=== PATIENT | female | born 1990 | race Caucasian/White ===

== ENCOUNTER 2017-01-24 13:38 | Emergency (ER) | payer OTHER ==
[2017-01-24 12:11] LABS: BASOPHILS 0.5 %; BASOPHILS ABSOLUTE 0.07 10/3/uL (0.0-0.16); EOSINOPHILS 3.4 %; EOSINOPHILS ABSOLUTE 0.53 10/3/uL (0.0-0.53); HEMATOCRIT 45.7 % (36.0-48.0); HEMOGLOBIN 16.2 g/dL (12.0-16.0); IMMATURE GRANULOCYTES 0.3 %; IMMATURE GRANULOCYTES ABSOLUTE 0.04 10/3/uL (0.0-0.11); LYMPHOCYTES 13.9 %; LYMPHOCYTES ABSOLUTE 2.15 10/3/uL (0.67-4.30); MANUAL DIFF NO %; MEAN CORPUS HGB CONC 35.4 g/dL (32.0-36.0); MEAN CORPUSCULAR VOLUME 87.5 fL (80-100); MONOCYTES 3.1 %; MONOCYTES ABSOLUTE 0.48 10/3/uL (0.21-1.20); NEUTROPHILS 78.8 %; NEUTROPHILS ABSOLUTE 12.24 10/3/uL (2.02-8.40); PLATELET COUNT 243 10/3/uL (150-400); RBC DISTRIBUTION WIDTH 14.2 % (12.0-16.0); RED CELL COUNT 5.22 10/6/uL (4.0-5.6); WHITE BLOOD CELLS 15.5 10/3/uL (4.5-10.5)
[2017-01-24 12:14] LABS: ASCORBIC ACID (UR NOT ORDER) NEG (NEG); BILIRUBIN, URINE NEGATIVE (NEG); ER URINALYSIS TAT 0 Hrs 07 Mins; KETONE, URINE NEGATIVE (NEG); LEUKOCYTE ESTERASE(NOT OR TRACE (NEG); NITRITE (URINE) NEG (NEG); WBC (NOT ORDERED) (RFLEX) < 1 (0-5)
[2017-01-24 12:41] LABS: BUN (BLOOD UREA NITROGEN) 9 MG/DL (6-23); CALCIUM, SERUM 9.1 MG/DL (8.5-10.4); CHLORIDE, SERUM 112 MMOL/L (96-112); CO2 (CARBON DIOXIDE) 23 MMOL/L (24-34); GFR AFRICAN AMERICAN 116 ML/MIN (>=60); GFR NON AFRICAN AMERICAN 100 ML/MIN (>=60); GLUCOSE, SERUM 110 MG/DL (60-99); SGPT(ALT) 81 U/L (5-65); SODIUM, SERUM 141 MMOL/L (135-148); TOTAL BILIRUBIN 0.3 MG/DL (0-1.2)
[2017-01-24 12:43] LABS: ALBUMIN 3.9 G/DL (3.5-5.0); ALKALINE PHOSPHATASE 172 U/L (45-117); GLOBULIN 3.9 G/DL (2.5-4.1); POTASSIUM, SERUM 4.9 MMOL/L (3.5-5.3); SGOT(AST) 44 U/L (5-40); TOTAL PROTEIN 7.8 G/DL (6.0-8.5)
[~2017-01-24 13:38] MED LIST: BENTYL10 PO; CREON24000 UNT PO; DSS PO; LUNESTA2 M1 PO; LYRICA75 PO; NICODERM C21 MG/241 TOP; OXYCOD PO; OXYCON10 PO; PR25 PO; PROTONIX20 MG PO; REG PO; ROXICODONE15 MG PO; VENTOLIN HFA PO
[2017-03-07] MEDS ORDERED: LYRICA150 MG PO (16:03)
[2017-03-07] MEDS ORDERED: ZOFRAN 2 MG/ML IM (16:05)
[2017-03-07] MEDS ORDERED: CREON DR 3,0001 EACH PO (16:12)
[2017-04-12] MEDS ORDERED: LUNESTA2 M1 PO (09:31)
[2017-04-12] MEDS ORDERED: LYRICA150 MG PO (09:32)
[2017-04-12] MEDS ORDERED: PROAIR HFA INH (09:32)
[2017-04-12] MEDS ORDERED: FLAG500TAB PO (09:33)
== END 2017-01-24 17:08 | disposition admitted as inpatient to this hospital (09) ==
LOC: ER 13:38
PROVIDERS: Emergency Medicine
DX: K86.1 Other chronic pancreatitis (principal); Z88.2 Allergy status to sulfonamides; Z88.5 Allergy status to narcotic agent; Z88.8 Allergy status to other drugs, medicaments and biological substances; Z79.899 Other long term (current) drug therapy
CPT/HCPCS: 80053; 81001; 83690; 84703; 85025; 96374; 99284; J1170; J2550

== ENCOUNTER 2017-01-27 09:21 | Emergency (ER) | payer OTHER ==
[2017-01-27 08:54] LABS: BASOPHILS 0.5 %; BASOPHILS ABSOLUTE 0.06 10/3/uL (0.0-0.16); EOSINOPHILS 5.6 %; HEMATOCRIT 43.1 % (36.0-48.0); HEMOGLOBIN 15.7 g/dL (12.0-16.0); IMMATURE GRANULOCYTES 0.2 %; IMMATURE GRANULOCYTES ABSOLUTE 0.02 10/3/uL (0.0-0.11); LYMPHOCYTES 17.4 %; LYMPHOCYTES ABSOLUTE 2.19 10/3/uL (0.67-4.30); MEAN CORPUS HGB CONC 36.4 g/dL (32.0-36.0); MEAN CORPUSCULAR HEMOGLOB 31.5 pg (26.0-34.0); MEAN CORPUSCULAR VOLUME 86.5 fL (80-100); MEAN PLATELET VOLUME 10.4 fL (9.2-13.0); MONOCYTES ABSOLUTE 0.76 10/3/uL (0.21-1.20); NEUTROPHILS 70.3 %; NEUTROPHILS ABSOLUTE 8.84 10/3/uL (2.02-8.40); PLATELET COUNT 229 10/3/uL (150-400); RBC DISTRIBUTION WIDTH 13.9 % (12.0-16.0); RED CELL COUNT 4.98 10/6/uL (4.0-5.6); WHITE BLOOD CELLS 12.6 10/3/uL (4.5-10.5)
[2017-01-27 08:55] LABS: MANUAL DIFF NO %
[2017-01-27 09:02] LABS: ASCORBIC ACID (UR NOT ORDER) NEG (NEG); BILIRUBIN, URINE NEGATIVE (NEG); ER URINALYSIS TAT 0 Hrs 12 Mins; KETONE, URINE NEGATIVE (NEG); LEUKOCYTE ESTERASE(NOT OR NEG (NEG); NITRITE (URINE) NEG (NEG); WBC (NOT ORDERED) (RFLEX) 1 (0-5)
[2017-01-27 09:16] LABS: ALBUMIN 3.8 G/DL (3.5-5.0); ALKALINE PHOSPHATASE 159 U/L (45-117); BUN (BLOOD UREA NITROGEN) 13 MG/DL (6-23); CALCIUM, SERUM 8.8 MG/DL (8.5-10.4); CHLORIDE, SERUM 107 MMOL/L (96-112); CO2 (CARBON DIOXIDE) 23 MMOL/L (24-34); CREATININE 0.79 MG/DL (0.55-1.02); GFR AFRICAN AMERICAN 118 ML/MIN (>=60); GFR NON AFRICAN AMERICAN 102 ML/MIN (>=60); GLOBULIN 3.8 G/DL (2.5-4.1); GLUCOSE, SERUM 114 MG/DL (60-99); POTASSIUM, SERUM 3.9 MMOL/L (3.5-5.3); SGOT(AST) 27 U/L (5-40); SGPT(ALT) 63 U/L (5-65); SODIUM, SERUM 141 MMOL/L (135-148); TOTAL BILIRUBIN 0.3 MG/DL (0-1.2); TOTAL PROTEIN 7.6 G/DL (6.0-8.5)
[2017-01-27 09:17] LABS: LACTATE 0.8 MMOL/L (0.3-2.4)
[2017-03-07] MEDS ORDERED: LYRICA150 MG PO (16:03)
[2017-03-07] MEDS ORDERED: ZOFRAN 2 MG/ML IM (16:05)
[2017-03-07] MEDS ORDERED: CREON DR 3,0001 EACH PO (16:12)
[2017-04-12] MEDS ORDERED: LUNESTA2 M1 PO (09:31)
[2017-04-12] MEDS ORDERED: PROAIR HFA INH (09:32)
[2017-04-12] MEDS ORDERED: LYRICA150 MG PO (09:32)
[2017-04-12] MEDS ORDERED: FLAG500TAB PO (09:33)
== END 2017-01-27 12:06 | disposition home or self-care (01) ==
LOC: ER 09:21
PROVIDERS: Nurse Practitioner Family
DX: K86.1 Other chronic pancreatitis (principal); J45.909 Unspecified asthma, uncomplicated; F41.9 Anxiety disorder, unspecified; F17.200 Nicotine dependence, unspecified, uncomplicated; Z88.2 Allergy status to sulfonamides; Z88.8 Allergy status to other drugs, medicaments and biological substances; Z79.899 Other long term (current) drug therapy
CPT/HCPCS: 74176; 80053; 81001; 83605; 83690; 84703; 85025; 96374; 96375; 96376; 99284; J1170; J2550

== ENCOUNTER 2017-03-10 13:42 | Day surgery (SDC) | payer OTHER ==
--- NOTE | ~2017-03-10 | EGD ---
EGD REPORT [facility] [address] [place]. [address] NAME: LEE ANN PACHECO : [birth year] STATUS : REG [facility]#: [id number] AGE: 26 ADM/REG DATE : 03/10/17 MR#: [id number] REPORT SERV DATE: 03/10/17 DICTATED BY: CHACORTA PANDEY DATE: 03/10/17 REPORT STATUS : Draft [facility]ANSCRIBED BY: [facility] DATE: 03/10/17 [facility] Center Patient Name: Lee Ann Pacheco Date of : 1990 Attending MD: CHACORTA PANDEY, Procedure Date No Time: 03/10/2017 Procedure: Upper EUS Indications: Celiac plexus block for pain secondary to chronic pancreatitis Referring MD: MARTIR MAYER SR Medicines: Monitored Anesthesia Care. Levaquin 750 mg IV. Complications: No immediate complications. Estimated blood loss: None. Procedure: Pre-Anesthesia Assessment: - ASA Grade Assessment: III - A patient with severe systemic disease. After obtaining informed consent, the endoscope was passed under direct vision. Throughout the procedure, the patient's blood pressure, pulse, and oxygen saturations were monitored continuously. The Endoscope was introduced through the mouth, and advanced to the second part of duodenum. Findings: Endosonographic Finding : Endosonographic imaging of the pancreas showed sonographic changes indicative of moderate chronic pancreatitis in the entire pancreas. The parenchyma had hyperechoic strands, hyperechoic foci, hypoechoic foci and lobularity. The pancreatic duct had hyperechoic banuelos. The region of the celiac plexus and celiac ganglia was visualized and showed no sign of significant endosonographic abnormality. Celiac plexus block was performed. The region of the celiac plexus and celiac ganglia was identified endosonographically with Color Doppler imaging, using the take-off of the celiac trunk from the anterior aspect of the aorta as the main anatomical landmark. Color Doppler guidance was also used to confirm a lack of significant vascular structures within the injection needle path. Using a transgastric approach, a 22 gauge needle was advanced to the area of the celiac plexus. Needle aspiration was performed prior to injection to exclude entry into a blood vessel. A total of 10 mL of 0.75% bupivacaine and 80 mg of triamcinolone (40 mg/mL) were injected for the celiac plexus block. The needle was then withdrawn. Impression: - Endosonographic imaging of the pancreas showed sonographic changes consistent with moderate chronic pancreatitis. EGD REPORT [address] [address] NAME: LEE ANN PACHECO : [birth year] STATUS : REG [facility] PAT#: [id number] AGE: 26 ADM/REG DATE : 03/10/17 MR#: [id number] REPORT SERV DATE: 03/10/17 DICTATED BY: CHACORTA PANDEY DATE: 03/10/17 REPORT STATUS : Draft TRANSCRIBED BY: [employer] DATE: 03/10/17 - Celiac plexus block performed. Recommendation: - Return to previous diet. - Continue present medications. - Cipro (ciprofloxacin) 500 mg PO BID. Procedure Code(s): --- Professional --- 67655, Esophagogastroduodenoscopy, flexible, transoral; with transendoscopic ultrasound-guided transmural injection of diagnostic or therapeutic substance(s) (eg, anesthetic, neurolytic agent) or fiducial marker(s) (includes endoscopic ultrasound examination of the esophagus, stomach, and either the duodenum or a surgically altered stomach where the jejunum is examined distal to the anastomosis) Diagnosis Code(s): --- Professional --- R93.3, Abnormal findings on diagnostic imaging of other parts of digestive tract K86.1, Other chronic pancreatitis CPT copyright 2013 [employer]. All rights reserved. The codes documented in this report are preliminary and upon food adviser review may be revised to meet current compliance requirements. CHACORTA PANDEY, 03/10/2017 3:42 PM Number of Addenda: 0 Note Initiated On: 03/10/2017 3:06 PM [address] [place] [address]
[~2017-03-10 13:42] MED LIST changes: +CREON DR 3,0001 EACH PO; +LYRICA150 MG PO; +ZOFRAN 2 MG/ML IM
[2017-04-12] MEDS ORDERED: LUNESTA2 M1 PO (09:31)
[2017-04-12] MEDS ORDERED: LYRICA150 MG PO (09:32)
[2017-04-12] MEDS ORDERED: PROAIR HFA INH (09:32)
[2017-04-12] MEDS ORDERED: FLAG500TAB PO (09:33)
== END 2017-03-10 23:59 | disposition home or self-care (01) ==
LOC: DMU 13:42
PROVIDERS: Internal Medicine Gastroenterology
PROC: 3E0T3GC Introduction of Other Therapeutic Substance into Peripheral Nerves and Plexi, Percutaneous Approach (ICD-10-PCS; principal; 2017-03-10 16:30)
DX: K86.1 Other chronic pancreatitis (principal); R93.3 Abnormal findings on diagnostic imaging of other parts of digestive tract; F17.210 Nicotine dependence, cigarettes, uncomplicated; J45.909 Unspecified asthma, uncomplicated; K21.9 Gastro-esophageal reflux disease without esophagitis; G43.909 Migraine, unspecified, not intractable, without status migrainosus; G89.29 Other chronic pain; E28.2 Polycystic ovarian syndrome; Z88.2 Allergy status to sulfonamides; Z88.5 Allergy status to narcotic agent; Z88.8 Allergy status to other drugs, medicaments and biological substances; Z98.890 Other specified postprocedural states; Z90.49 Acquired absence of other specified parts of digestive tract; Z87.01 Personal history of pneumonia (recurrent); Z90.89 Acquired absence of other organs; Z87.09 Personal history of other diseases of the respiratory system; Z79.899 Other long term (current) drug therapy; Z79.891 Long term (current) use of opiate analgesic
CPT/HCPCS: 84703; C1725; J1170; J1956; J2550; J3301

== ENCOUNTER 2017-04-04 17:48 | Emergency (ER) | payer OTHER ==
[2017-04-04 19:09] LABS: ASCORBIC ACID (UR NOT ORDER) NEG (NEG); BILIRUBIN, URINE NEGATIVE (NEG); ER URINALYSIS TAT 0 Hrs 21 Mins; KETONE, URINE NEGATIVE (NEG); LEUKOCYTE ESTERASE(NOT OR NEG (NEG); NITRITE (URINE) NEG (NEG); WBC (NOT ORDERED) (RFLEX) 1 (0-5)
[2017-04-04 19:10] LABS: ALBUMIN 3.8 G/DL (3.5-5.0); ALKALINE PHOSPHATASE 154 U/L (45-117); BUN (BLOOD UREA NITROGEN) 11 MG/DL (6-23); CALCIUM, SERUM 9.2 MG/DL (8.5-10.4); CHLORIDE, SERUM 107 MMOL/L (96-112); CO2 (CARBON DIOXIDE) 25 MMOL/L (24-34); GFR AFRICAN AMERICAN 101 ML/MIN (>=60); GFR NON AFRICAN AMERICAN 87 ML/MIN (>=60); GLOBULIN 3.8 G/DL (2.5-4.1); GLUCOSE, SERUM 92 MG/DL (60-99); SGOT(AST) 23 U/L (5-40); SGPT(ALT) 59 U/L (5-65); SODIUM, SERUM 140 MMOL/L (135-148); TOTAL BILIRUBIN 0.3 MG/DL (0-1.2); TOTAL PROTEIN 7.6 G/DL (6.0-8.5)
[2017-04-04 20:03] LABS: BASOPHILS 0.4 %; BASOPHILS ABSOLUTE 0.04 10/3/uL (0.0-0.16); EOSINOPHILS ABSOLUTE 0.23 10/3/uL (0.0-0.53); HEMATOCRIT 46.2 % (36.0-48.0); IMMATURE GRANULOCYTES 0.2 %; IMMATURE GRANULOCYTES ABSOLUTE 0.02 10/3/uL (0.0-0.11); LYMPHOCYTES 24.3 %; LYMPHOCYTES ABSOLUTE 2.74 10/3/uL (0.67-4.30); MEAN CORPUS HGB CONC 34.6 g/dL (32.0-36.0); MEAN CORPUSCULAR HEMOGLOB 31.5 pg (26.0-34.0); MEAN PLATELET VOLUME 10.3 fL (9.2-13.0); MONOCYTES 4.3 %; MONOCYTES ABSOLUTE 0.48 10/3/uL (0.21-1.20); NEUTROPHILS 68.8 %; NEUTROPHILS ABSOLUTE 7.75 10/3/uL (2.02-8.40); PLATELET COUNT 261 10/3/uL (150-400); RBC DISTRIBUTION WIDTH 13.6 % (12.0-16.0); RED CELL COUNT 5.08 10/6/uL (4.0-5.6); WHITE BLOOD CELLS 11.3 10/3/uL (4.5-10.5)
[2017-04-04 20:04] LABS: MANUAL DIFF NO %; MEAN CORPUSCULAR VOLUME 90.9 fL (80-100)
[2017-04-12] MEDS ORDERED: LUNESTA2 M1 PO (09:31)
[2017-04-12] MEDS ORDERED: PROAIR HFA INH (09:32)
[2017-04-12] MEDS ORDERED: LYRICA150 MG PO (09:32)
[2017-04-12] MEDS ORDERED: FLAG500TAB PO (09:33)
== END 2017-04-04 23:29 | disposition home or self-care (01) ==
LOC: ER 17:48
PROVIDERS: Hospitalist
DX: K92.0 Hematemesis (principal); R10.13 Epigastric pain; M54.9 Dorsalgia, unspecified; J45.909 Unspecified asthma, uncomplicated; F17.200 Nicotine dependence, unspecified, uncomplicated; Z88.2 Allergy status to sulfonamides; Z88.5 Allergy status to narcotic agent; Z88.8 Allergy status to other drugs, medicaments and biological substances; Z79.899 Other long term (current) drug therapy
CPT/HCPCS: 74177; 80053; 81001; 83690; 84703; 85025; 96374; 96375; 99285; J1170; J2550; Q9967

== ENCOUNTER 2017-04-12 09:33 | Inpatient (IN) | payer OTHER ==
--- NOTE | ~2017-04-12 | DS ---
Discharge Summary [place] [facility]. [address] NAME: JOVANY PACHECO : [birth year] STATUS : DIS IN PAT#: [id number] AGE: 26 ADM/REG DATE : 04/12/17 MR#: [id number] REPORT SERV DATE: 04/18/17 DICTATED BY: DATE: REPORT STATUS : Draft TRANSCRIBED BY: MODL DATE: 04/17/17 ADMISSION DATE: 04/12/2017 DISCHARGE DATE: 04/17/2017 DISCHARGE DIAGNOSES: 1. Pancreatitis, acute on chronic. 2. Obesity with a body mass index of 40.2. 3. Polycystic ovarian disease. 4. History of asthma. 5. Tobacco abuse. CONSULTING PHYSICIANS: Include Dr. Tomlin with GI Medicine and Ms. Chad Fields NP. DISCHARGE MEDICATIONS: Include Protonix 20 mg p.o. at bedtime, Lyrica 150 mg p.o. b.i.d., OxyContin 10 mg p.o. b.i.d., Lunesta 3 mg p.o. at bedtime, ProAir two puffs inhalation daily p.r.n. for shortness of breath, albuterol nebulizer one neb daily p.r.n. for shortness of breath, Bentyl 10 mg p.o. four times daily, Phenergan 25 mg p.o. q.6 hours p.r.n. for nausea, Creon 48,000 units p.o. with meals, Zantac 150 mg p.o. daily p.r.n. for GERD, Dilaudid 2 mg p.o. q.6 hours p.r.n. for pain per the GI Medicine. For full H and P, please refer to Dr. Franca Devlin' dictation on 04/12/2017. Please also see Chet Lam dictation on 04/12/2017. HOSPITAL COURSE/PROBLEM LIST: Acute on chronic pancreatitis. 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 I gave Dilaudid p.r.n. Her pain has not improved much since admission despite the fact that her lipase is trended down to 77 and the patient was well hydrated with IV fluids, discontinuing them yesterday after the patient had a BUN of 3. She has frequently gone outside to smoke despite education that smoking can actually increase her risk of pancreatitis. Her abdomen is soft and no guarding noted. The patient reports vomiting; however, the nurses have repeatedly asked her to save the vomiting, so it can be examined. They have never actually seen her vomit nor has she saved the remains. Her pain has stayed out of proportion to her clinical picture, unclear as to whether this is drug-seeking behavior versus true pathology. She will have a close followup with GI Medicine. She will see Dr. Lay in one week post discharge. She also has an appointment with her primary care provider next Monday. If she states, there is her pain management, I will keep her on her home pain management regimen of OxyContin and Roxicodone and GI medicine gave her a short course of p.o. Dilaudid until she makes it to her followup appointment and she has not had a fever or increased white blood cell count. Initially, her alk phos was elevated; however, now it is normal at 114, ALT is 35, AST is 21 as mentioned before. Her lipase yesterday was 77 and today is 85. The patient was instructed multiple times on tobacco cessation. She will also be discharged on Creon 48,000 units with meals. Her vital signs are stable. Temp at 98.3, heart rate of 80, respirations of 18, O2 sat 97% on room air, and blood pressure of 130/79. Due to the patient's education, medication reconciliation, discharge planning and Discharge Summary [address] [address] NAME: JOVANY PACHECO : [birth year] STATUS : DIS IN PAT#: [id number] AGE: 26 ADM/REG DATE : 04/12/17 MR#: [id number] REPORT SERV DATE: 04/18/17 DICTATED BY: DATE: REPORT STATUS : Draft TRANSCRIBED BY: SETH DATE: 04/17/17 coordination, this discharge took greater than 30 minutes. DICTATED BY: JACQUELYN Addison/SETH Shan Elkins NP / [id number] CC: MD Tristan Carmen MD
--- NOTE | ~2017-04-12 | CN ---
Consultation Report [facility] [address] [place]. [address] NAME: JOVANY PACHECO : [birth year] STATUS : ADM [facility] PAT#: [id number] AGE: 26 ADM/REG DATE : 04/12/17 MR#: [id number] REPORT SERV DATE: 04/12/17 DICTATED BY: LOBO BUENROSTRO DATE: 04/12/17 REPORT STATUS : Draft TRANSCRIBED BY: MODL DATE: 04/12/17 GI CONSULTATION DATE OF CONSULTATION: 04/12/2017 REASON FOR CONSULTATION: Evaluation and management for acute on chronic pancreatitis exacerbation. HISTORY OF PRESENT ILLNESS: Mrs. Pacheco is a 26-year-old female patient who is known to Dr. Tristan Lay in the outpatient setting, who presents with a chief complaint of epigastric abdominal pain. She has a significant past medical history positive for chronic pancreatitis, first diagnosed in 2013. Per patient's report, she has had multiple workups at the [facility], [facility], [facility], as well as [facility] being seen by Dr. Lay. She had a recent endoscopic ultrasound with celiac plexus block, 03/10/2017 under the direction of Dr. Lay. On that exam, it showed endoscopic imaging of the pancreas for sonographic changes consistent with moderate chronic pancreatitis. She did undergo a celiac plexus block at that time. The patient states that the celiac plexus block did not really improve or change her pain. She states for the last one to two weeks. She has had increasing epigastric abdominal pain. She presented to [facility] on 04/04/2017. She underwent a contrasted CT scan, which showed no peripancreatic acute inflammatory changes with a normal lipase and was discharged. She was seen by her primary care physician on Monday of this week. Labs were obtained. She was called yesterday and told she had elevated lipase, thus she presented to [facility]. As per her report, she was taking "too many of her pain medications at home." She has had extreme nausea with vomiting. She has been unable to tolerate any liquids or any solid food in the last three to four days. The patient denies any family history of pancreatic abnormalities, although she reports a grandfather with a history of pancreatic cancer. We did see the patient in 10/2016. She was hospitalized for an extended period of time, required a Dobbhoff tube for enteral feeding for a short course. Subsequently, she was discharged, did relatively well up until January of this year, and began to have recurrent pancreatic symptoms. During her laboratory testing she did have an SANA, which is elevated at 1:320 pattern, homogeneous, and is supposed to see a rock singer in May of this year. I have discussed with the patient. We will treat her pain and nausea as well as IV fluid hydration. PAST MEDICAL HISTORY: Positive for acute on chronic pancreatitis, polycystic ovarian syndrome, obesity, asthma. FAMILY HISTORY: Pancreatic cancer in grandfather. SOCIAL HISTORY: Positive tobacco. No alcohol. No illicits. She lives independently with her and does work outside of the home. ALLERGIES: LISTED TO SULFA, MORPHINE, AND ZOFRAN. Consultation Report [address] [place]. [address] NAME: JOVANY PACHECO : [birth year] STATUS : ADM [facility] PAT#: [id number] AGE: 26 ADM/REG DATE : 04/12/17 MR#: [id number] REPORT SERV DATE: 04/12/17 DICTATED BY: LOBO BUENROSRTO DATE: 04/12/17 REPORT STATUS : Draft TRANSCRIBED BY: SETH DATE: 04/12/17 HOME MEDICATIONS: Consist of ProAir HFA, albuterol, Bentyl, Lunesta, Flagyl, Roxicodone, OxyContin, Protonix, Lyrica, Phenergan, Zantac, Creon. REVIEW OF SYSTEMS: A 10-point review of systems has been obtained with pertinent positives being addressed in the history of present illness. PHYSICAL EXAMINATION: VITAL SIGNS: Temperature 98.4, pulse 83, respirations 16, and blood pressure 125/59. NEURO: Reveals an alert, female, sitting up on the bedside, rocking back and forth. GENERAL: She is cooperative. She is in distress secondary to "extreme abdominal pain." She is awake, alert, oriented x3. HEAD, EARS, EYES, NOSE, AND THROAT: Anicteric. Pupils equal, round, reactive to light accommodation. Normocephalic and atraumatic. NECK: No JVD. No palpable nodes. Supple. LUNGS: Clear anteriorly. Diminished in the bases. She has shallow inspiratory effort. CARDIOVASCULAR: Regular rate and rhythm. ABDOMEN: Soft and obese. She has tenderness markedly to palpation to the epigastric region with voluntary guarding. Active bowel sounds. No organomegaly appreciated. EXTREMITIES: No edema. Normal distal pulses. SKIN: Warm, dry, and intact. PERTINENT LABORATORY DATA: Sodium 140, potassium is 3.9, BUN is 11, creatinine 0.81. White count 13.6, hemoglobin 15.5, hematocrit 45.2. Lipase of 407, amylase is 71, total bilirubin 0.7, alkaline phosphatase 186, ALT 94, AST 37. ASSESSMENT: 1. Epigastric abdominal pain. 2. History of recurrent pancreatitis, acute on chronic. PLAN: 1. N.p.o. except for ice chips. 2. IV fluid resuscitation. 3. 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 4. PPI. 5. Antiemetics. We will follow. MAYUR/SETH ANN Vargas Consultation Report [address] [address] NAME: JOVANY PACHECO : [birth year] STATUS : ADM [facility] PAT#: [id number] AGE: 26 ADM/REG DATE : 04/12/17 MR#: [id number] REPORT SERV DATE: 04/12/17 DICTATED BY: LOBO BUENROSTRO N DATE: 04/12/17 REPORT STATUS : Draft TRANSCRIBED BY: SETH DATE: 04/12/17 / [id number] CC: Franca Devlin M.D.
--- NOTE | ~2017-04-12 | HP ---
History And Physical [address] [address] NAME: JOVANY PACHECO : [birth year] STATUS : ADM [facility] PAT#: [id number] AGE: 26 ADM/REG DATE : 04/12/17 MR#: [id number] REPORT SERV DATE: 04/12/17 DICTATED BY: BLAIR DEVLIN DATE: 04/12/17 REPORT STATUS : Draft TRANSCRIBED BY: MODL DATE: 04/12/17 DATE OF ADMISSION: 04/12/2017 CHIEF COMPLAINT: Abdominal pain. HISTORY OF PRESENT ILLNESS: The patient is a 26-year-old white female who is well known to the Hospitalist Service. She suffers from chronic pancreatitis which is idiopathic. She has seen Dr. Lay. She was last here in 10/2016. At that time, she had a fairly extensive workup including an ERCP, MRI, several labs, and ended up with a Dobhoff for short period of time and ultimately went home. She returns today complaining of generalized abdominal pain, mostly in the upper abdomen and fever to 101. She had several episodes of emesis and nausea. No diarrhea. She actually had a celiac block three weeks ago for the pain with Dr. Lay, but she states she had no relief. PAST MEDICAL HISTORY: 1. Chronic pancreatitis, idiopathic. 2. Obesity. 3. PCOD. 4. Asthma. FAMILY HISTORY: Positive for diabetes. Her grandfather had pancreatic cancer, and her mother had COPD. PAST SURGICAL HISTORY: She had: 1. Cholecystectomy. 2. ERCP. 3. EGD. 4. Colonoscopy. ALLERGIES: SULFA, MORPHINE, AND ZOFRAN. HOME MEDICATIONS: Reviewed and attached. REVIEW OF SYSTEMS: Full 10-point review of systems obtained. Pertinent positives already mentioned in the HPI. PHYSICAL EXAMINATION: VITAL SIGNS: BP 132/79, sats 95%, temperature 97.8, pulse 84, and respiratory rate 16. GENERAL: Well-developed white female. HEENT: Normocephalic, atraumatic. Throat is clear. NECK: Supple. HEART: Regular rate and rhythm. LUNGS: Grossly clear with good symmetrical air entry. ABDOMEN: Soft, but tender in all four quadrants but mostly in the upper quadrants. EXTREMITIES: Warm and dry. SKIN: Intact without rash or lesion. NEURO: She is alert. Cranial nerves II through XII intact. Symmetrical strength and tone History And Physical [place] [id number] [facility] [place]. [address] NAME: JOVANY PACHECO : [birth year] STATUS : ADM [facility] PAT#: [id number] AGE: 26 ADM/REG DATE : 04/12/17 MR#: [id number] REPORT SERV DATE: 04/12/17 DICTATED BY: BLAIR DEVLIN DATE: 04/12/17 REPORT STATUS : Draft TRANSCRIBED BY: MODMichael DATE: 04/12/17 in all four extremities. PSYCH: Mood and affect are appropriate. LABS AND X-RAY: H and H 15 and 45, white count 13.6, platelets are 259. HCG is negative. Basic metabolic panel is normal. Glucose is 130, alkaline phosphatase is 186, ALT is 94, total bilirubin is 0.7. Lipase is 407. Urinalysis has 8 whites on the first one. She has only 1 white on the second one. Procalcitonin is less than 0.05. She had a CT abdomen and pelvis on 04/04/2017 which was negative. ASSESSMENT/PLAN: 1. Chronic pancreatitis with recurrent abdominal pain, mildly elevated lipase. I am waiting for serum amylase. She is tender upon palpation. I suspect this is another episode. We will have Dr. Lay see her. I do not have really any additional recommendations except for conservative management. We will make her n.p.o., provide IV analgesics, and antiemetics. Provide IV fluid resuscitation. Serial labs, serial exam, not sure there is much else to offer here. 2. Obesity. 3. Polycystic ovarian disease. 4. History of asthma. 5. Mild leukocytosis, likely secondary to ongoing pancreatitis, procalcitonin is normal. Urinalysis on repeat looks good. No cough. We will follow. 6. Disposition pending above. 7. Deep venous thrombosis prophylaxis. Subcutaneous Lovenox. CARLOS/SETH Blair Devlin M.D. / [id number] CC: Rafaela Navarro MD
[2017-04-12 08:39] LABS: BASOPHILS 0.3 %; BASOPHILS ABSOLUTE 0.04 10/3/uL (0.0-0.16); EOSINOPHILS 2.2 %; ER CBC TAT 0 Hrs 05 Mins; HEMATOCRIT 45.2 % (36.0-48.0); HEMOGLOBIN 15.5 g/dL (12.0-16.0); IMMATURE GRANULOCYTES 0.2 %; IMMATURE GRANULOCYTES ABSOLUTE 0.03 10/3/uL (0.0-0.11); LYMPHOCYTES ABSOLUTE 2.31 10/3/uL (0.67-4.30); MANUAL DIFF NO %; MEAN CORPUS HGB CONC 34.3 g/dL (32.0-36.0); MEAN CORPUSCULAR HEMOGLOB 31.3 pg (26.0-34.0); MEAN CORPUSCULAR VOLUME 91.1 fL (80-100); MEAN PLATELET VOLUME 9.9 fL (9.2-13.0); MONOCYTES 6.5 %; MONOCYTES ABSOLUTE 0.88 10/3/uL (0.21-1.20); NEUTROPHILS 73.8 %; PLATELET COUNT 259 10/3/uL (150-400); RBC DISTRIBUTION WIDTH 13.7 % (12.0-16.0); RED CELL COUNT 4.96 10/6/uL (4.0-5.6); WHITE BLOOD CELLS 13.6 10/3/uL (4.5-10.5)
[2017-04-12 08:54] LABS: ASCORBIC ACID (UR NOT ORDER) NEG (NEG); BILIRUBIN, URINE NEGATIVE (NEG); ER URINALYSIS TAT 0 Hrs 00 Mins; KETONE, URINE TRACE MG/DL (NEG); LEUKOCYTE ESTERASE(NOT OR MOD (NEG); NITRITE (URINE) NEG (NEG); WBC (NOT ORDERED) (RFLEX) 8 (0-5)
[2017-04-12 08:56] LABS: A/G RATIO 0.9 (0.7-1.9); ALBUMIN 3.5 G/DL (3.5-5.0); ALKALINE PHOSPHATASE 186 U/L (45-117); BUN (BLOOD UREA NITROGEN) 11 MG/DL (6-23); CALCIUM, SERUM 9.2 MG/DL (8.5-10.4); CHLORIDE, SERUM 107 MMOL/L (96-112); CO2 (CARBON DIOXIDE) 27 MMOL/L (24-34); CREATININE 0.81 MG/DL (0.55-1.02); GFR AFRICAN AMERICAN 115 ML/MIN (>=60); GFR NON AFRICAN AMERICAN 99 ML/MIN (>=60); GLOBULIN 3.8 G/DL (2.5-4.1); GLUCOSE, SERUM 130 MG/DL (60-99); POTASSIUM, SERUM 3.9 MMOL/L (3.5-5.3); SGOT(AST) 37 U/L (5-40); SGPT(ALT) 94 U/L (5-65); SODIUM, SERUM 140 MMOL/L (135-148); TOTAL BILIRUBIN 0.7 MG/DL (0-1.2); TOTAL PROTEIN 7.3 G/DL (6.0-8.5)
[~2017-04-12 09:33] MED LIST changes: +FLAG500TAB PO; +PROAIR HFA INH
[2017-04-12] MEDS ORDERED: ROXICODONE15 MG PO (09:34)
[2017-04-12] MEDS ORDERED: ALBUTEROL0.083 % INH (09:34)
[2017-04-12] MEDS ORDERED: BENTYL10 PO (09:35)
[2017-04-12] MEDS ORDERED: PROTONIX20 MG PO (09:35)
[2017-04-12] MEDS ORDERED: OXYCON10 PO (09:36)
[2017-04-12] MEDS ORDERED: PHENERGAN (G25 MG/ML IM (09:37)
[2017-04-12] MEDS ORDERED: CREON 24,000 UNIT PO (09:38)
[2017-04-12] MEDS ORDERED: PR25 PO (09:38)
[2017-04-12] MEDS ORDERED: ZANTAC 150 PO (09:41)
[2017-04-12 14:32] LABS: ASCORBIC ACID (UR NOT ORDER) NEG (NEG); BILIRUBIN, URINE NEGATIVE (NEG); KETONE, URINE NEGATIVE (NEG); LEUKOCYTE ESTERASE(NOT OR SMALL (NEG); WBC (NOT ORDERED) (RFLEX) 1 (0-5)
[2017-04-13 04:55] LABS: BASOPHILS 0.3 %; BASOPHILS ABSOLUTE 0.03 10/3/uL (0.0-0.16); EOSINOPHILS 2.4 %; EOSINOPHILS ABSOLUTE 0.24 10/3/uL (0.0-0.53); HEMATOCRIT 42.2 % (36.0-48.0); IMMATURE GRANULOCYTES 0.3 %; IMMATURE GRANULOCYTES ABSOLUTE 0.03 10/3/uL (0.0-0.11); LYMPHOCYTES 21.7 %; LYMPHOCYTES ABSOLUTE 2.19 10/3/uL (0.67-4.30); MANUAL DIFF NO %; MEAN CORPUS HGB CONC 33.2 g/dL (32.0-36.0); MEAN CORPUSCULAR HEMOGLOB 30.6 pg (26.0-34.0); MEAN CORPUSCULAR VOLUME 92.3 fL (80-100); MEAN PLATELET VOLUME 10.2 fL (9.2-13.0); MONOCYTES 6.1 %; MONOCYTES ABSOLUTE 0.61 10/3/uL (0.21-1.20); NEUTROPHILS 69.2 %; NEUTROPHILS ABSOLUTE 6.98 10/3/uL (2.02-8.40); PLATELET COUNT 225 10/3/uL (150-400); RBC DISTRIBUTION WIDTH 13.8 % (12.0-16.0); RED CELL COUNT 4.57 10/6/uL (4.0-5.6); WHITE BLOOD CELLS 10.1 10/3/uL (4.5-10.5)
[2017-04-13 05:09] LABS: A/G RATIO 0.9 (0.7-1.9); ALBUMIN 3.1 G/DL (3.5-5.0); CALCIUM, SERUM 8.3 MG/DL (8.5-10.4); CHLORIDE, SERUM 110 MMOL/L (96-112); CO2 (CARBON DIOXIDE) 27 MMOL/L (24-34); CREATININE 0.71 MG/DL (0.55-1.02); GFR AFRICAN AMERICAN 134 ML/MIN (>=60); GFR NON AFRICAN AMERICAN 116 ML/MIN (>=60); GLOBULIN 3.5 G/DL (2.5-4.1); SGOT(AST) 27 U/L (5-40); SGPT(ALT) 72 U/L (5-65); SODIUM, SERUM 142 MMOL/L (135-148); TOTAL BILIRUBIN 0.3 MG/DL (0-1.2); TOTAL PROTEIN 6.6 G/DL (6.0-8.5)
[2017-04-13 05:10] LABS: ALKALINE PHOSPHATASE 138 U/L (45-117); BUN (BLOOD UREA NITROGEN) 6 MG/DL (6-23); GLUCOSE, SERUM 84 MG/DL (60-99); TRIGLYCERIDE 81 MG/DL (< 150)
[2017-04-14 07:15] LABS: BASOPHILS 0.1 %; BASOPHILS ABSOLUTE 0.01 10/3/uL (0.0-0.16); EOSINOPHILS 1.8 %; EOSINOPHILS ABSOLUTE 0.17 10/3/uL (0.0-0.53); HEMATOCRIT 40.4 % (36.0-48.0); HEMOGLOBIN 13.1 g/dL (12.0-16.0); IMMATURE GRANULOCYTES 0.2 %; IMMATURE GRANULOCYTES ABSOLUTE 0.02 10/3/uL (0.0-0.11); LYMPHOCYTES 15.9 %; LYMPHOCYTES ABSOLUTE 1.54 10/3/uL (0.67-4.30); MEAN CORPUS HGB CONC 32.4 g/dL (32.0-36.0); MEAN CORPUSCULAR VOLUME 92.4 fL (80-100); MEAN PLATELET VOLUME 9.9 fL (9.2-13.0); MONOCYTES 8.5 %; MONOCYTES ABSOLUTE 0.82 10/3/uL (0.21-1.20); NEUTROPHILS 73.5 %; PLATELET COUNT 185 10/3/uL (150-400); RBC DISTRIBUTION WIDTH 13.9 % (12.0-16.0); RED CELL COUNT 4.37 10/6/uL (4.0-5.6); WHITE BLOOD CELLS 9.7 10/3/uL (4.5-10.5)
[2017-04-14 07:16] LABS: MANUAL DIFF NO %
[2017-04-14 07:29] LABS: ALKALINE PHOSPHATASE 132 U/L (45-117); BUN (BLOOD UREA NITROGEN) 4 MG/DL (6-23); CHLORIDE, SERUM 107 MMOL/L (96-112); CO2 (CARBON DIOXIDE) 30 MMOL/L (24-34); CREATININE 0.78 MG/DL (0.55-1.02); DIRECT BILIRUBIN 0.1 MG/DL (0.0-0.4); GFR AFRICAN AMERICAN 120 ML/MIN (>=60); GFR NON AFRICAN AMERICAN 103 ML/MIN (>=60); GLOBULIN 3.1 G/DL (2.5-4.1); INDIRECT BILIRUBIN(NOT ORDER) 0.2 MG/DL (0.1-0.9); SGOT(AST) 21 U/L (5-40); SGPT(ALT) 51 U/L (5-65); SODIUM, SERUM 139 MMOL/L (135-148); TOTAL BILIRUBIN 0.3 MG/DL (0-1.2); TOTAL PROTEIN 6.1 G/DL (6.0-8.5)
[2017-04-14 07:30] LABS: GLUCOSE, SERUM 119 MG/DL (60-99)
[2017-04-15 05:39] LABS: BASOPHILS 0.3 %; BASOPHILS ABSOLUTE 0.03 10/3/uL (0.0-0.16); EOSINOPHILS 1.1 %; EOSINOPHILS ABSOLUTE 0.11 10/3/uL (0.0-0.53); HEMATOCRIT 39.3 % (36.0-48.0); HEMOGLOBIN 12.9 g/dL (12.0-16.0); IMMATURE GRANULOCYTES 0.1 %; IMMATURE GRANULOCYTES ABSOLUTE 0.01 10/3/uL (0.0-0.11); LYMPHOCYTES 20.8 %; LYMPHOCYTES ABSOLUTE 2.03 10/3/uL (0.67-4.30); MEAN CORPUS HGB CONC 32.8 g/dL (32.0-36.0); MEAN CORPUSCULAR HEMOGLOB 30.3 pg (26.0-34.0); MEAN CORPUSCULAR VOLUME 92.3 fL (80-100); MEAN PLATELET VOLUME 9.8 fL (9.2-13.0); MONOCYTES 7.6 %; MONOCYTES ABSOLUTE 0.74 10/3/uL (0.21-1.20); NEUTROPHILS 70.1 %; NEUTROPHILS ABSOLUTE 6.83 10/3/uL (2.02-8.40); PLATELET COUNT 195 10/3/uL (150-400); RBC DISTRIBUTION WIDTH 14.1 % (12.0-16.0); RED CELL COUNT 4.26 10/6/uL (4.0-5.6); WHITE BLOOD CELLS 9.8 10/3/uL (4.5-10.5)
[2017-04-15 05:40] LABS: MANUAL DIFF NO %
[2017-04-15 05:52] LABS: A/G RATIO 0.9 (0.7-1.9); ALKALINE PHOSPHATASE 122 U/L (45-117); BUN (BLOOD UREA NITROGEN) 4 MG/DL (6-23); CALCIUM, SERUM 8.2 MG/DL (8.5-10.4); CHLORIDE, SERUM 106 MMOL/L (96-112); CO2 (CARBON DIOXIDE) 28 MMOL/L (24-34); CREATININE 0.84 MG/DL (0.55-1.02); GFR AFRICAN AMERICAN 110 ML/MIN (>=60); GFR NON AFRICAN AMERICAN 95 ML/MIN (>=60); GLOBULIN 3.2 G/DL (2.5-4.1); GLUCOSE, SERUM 102 MG/DL (60-99); POTASSIUM, SERUM 3.5 MMOL/L (3.5-5.3); SGOT(AST) 21 U/L (5-40); SGPT(ALT) 45 U/L (5-65); SODIUM, SERUM 140 MMOL/L (135-148); TOTAL BILIRUBIN 0.2 MG/DL (0-1.2); TOTAL PROTEIN 6.2 G/DL (6.0-8.5)
[2017-04-16 05:22] LABS: BASOPHILS 0.2 %; BASOPHILS ABSOLUTE 0.02 10/3/uL (0.0-0.16); EOSINOPHILS 2.2 %; EOSINOPHILS ABSOLUTE 0.19 10/3/uL (0.0-0.53); HEMOGLOBIN 13.5 g/dL (12.0-16.0); IMMATURE GRANULOCYTES 0.3 %; IMMATURE GRANULOCYTES ABSOLUTE 0.03 10/3/uL (0.0-0.11); LYMPHOCYTES 20.7 %; LYMPHOCYTES ABSOLUTE 1.83 10/3/uL (0.67-4.30); MEAN CORPUS HGB CONC 33.8 g/dL (32.0-36.0); MEAN CORPUSCULAR HEMOGLOB 30.9 pg (26.0-34.0); MEAN CORPUSCULAR VOLUME 91.5 fL (80-100); MEAN PLATELET VOLUME 9.9 fL (9.2-13.0); MONOCYTES 7.5 %; MONOCYTES ABSOLUTE 0.66 10/3/uL (0.21-1.20); NEUTROPHILS 69.1 %; PLATELET COUNT 223 10/3/uL (150-400); RBC DISTRIBUTION WIDTH 13.8 % (12.0-16.0); RED CELL COUNT 4.37 10/6/uL (4.0-5.6); WHITE BLOOD CELLS 8.8 10/3/uL (4.5-10.5)
[2017-04-16 05:25] LABS: MANUAL DIFF NO %
[2017-04-16 05:38] LABS: A/G RATIO 0.9 (0.7-1.9); ALBUMIN 3.1 G/DL (3.5-5.0); ALKALINE PHOSPHATASE 123 U/L (45-117); BUN (BLOOD UREA NITROGEN) 3 MG/DL (6-23); CALCIUM, SERUM 8.4 MG/DL (8.5-10.4); CHLORIDE, SERUM 106 MMOL/L (96-112); CO2 (CARBON DIOXIDE) 28 MMOL/L (24-34); CREATININE 0.82 MG/DL (0.55-1.02); GFR AFRICAN AMERICAN 113 ML/MIN (>=60); GFR NON AFRICAN AMERICAN 97 ML/MIN (>=60); GLOBULIN 3.3 G/DL (2.5-4.1); GLUCOSE, SERUM 120 MG/DL (60-99); POTASSIUM, SERUM 3.6 MMOL/L (3.5-5.3); SGOT(AST) 18 U/L (5-40); SGPT(ALT) 39 U/L (5-65); SODIUM, SERUM 138 MMOL/L (135-148); TOTAL BILIRUBIN 0.3 MG/DL (0-1.2); TOTAL PROTEIN 6.4 G/DL (6.0-8.5)
[2017-04-17 05:20] LABS: A/G RATIO 0.9 (0.7-1.9); ALKALINE PHOSPHATASE 114 U/L (45-117); BUN (BLOOD UREA NITROGEN) 5 MG/DL (6-23); CALCIUM, SERUM 8.7 MG/DL (8.5-10.4); CHLORIDE, SERUM 108 MMOL/L (96-112); CO2 (CARBON DIOXIDE) 27 MMOL/L (24-34); CREATININE 0.75 MG/DL (0.55-1.02); GFR AFRICAN AMERICAN 126 ML/MIN (>=60); GFR NON AFRICAN AMERICAN 108 ML/MIN (>=60); GLOBULIN 3.3 G/DL (2.5-4.1); GLUCOSE, SERUM 110 MG/DL (60-99); POTASSIUM, SERUM 4.1 MMOL/L (3.5-5.3); SGOT(AST) 21 U/L (5-40); SGPT(ALT) 35 U/L (5-65); SODIUM, SERUM 141 MMOL/L (135-148); TOTAL BILIRUBIN 0.4 MG/DL (0-1.2); TOTAL PROTEIN 6.3 G/DL (6.0-8.5)
[2017-04-17] MEDS ORDERED: DIL2TAB PO (13:36)
== END 2017-04-17 14:10 | disposition home or self-care (01) | DRG 439 ==
LOC: ER 09:33 → CDU1 09:35 → 4EA 04-13 13:52
PROVIDERS: Internal Medicine; Nurse Practitioner Acute Care; Nurse Practitioner Family; Physician Assistant
DX: K85.90 Acute pancreatitis without necrosis or infection, unspecified (principal); Z68.41 Body mass index [BMI] 40.0-44.9, adult; E28.2 Polycystic ovarian syndrome; E66.9 Obesity, unspecified; F17.210 Nicotine dependence, cigarettes, uncomplicated
CPT/HCPCS: 74176; 80053; 80076; 81001; 82150; 83690; 84145; 84478; 84703; 85025; 87040; 87086; 96374; 96375; 96376; 99285; A9270-GY; C9113; J0780; J1170; J1200; J2550

== ENCOUNTER 2017-06-25 01:59 | Emergency (ER) | payer OTHER ==
[~2017-06-25] VITALS: Ht 168 cm; Wt 108.0 kg
[~2017-06-25 01:59] MED LIST changes: +ALBUTEROL0.083 % INH; +CREON 24,000 UNIT PO; +DIL2TAB PO; +PHENERGAN (G25 MG/ML IM; +ZANTAC 150 PO
[2017-06-25 03:17] LABS: ASCORBIC ACID (UR NOT ORDER) NEG (NEG); BILIRUBIN, URINE NEGATIVE (NEG); ER URINALYSIS TAT 0 Hrs 08 Mins; KETONE, URINE NEGATIVE (NEG); LEUKOCYTE ESTERASE(NOT OR SMALL (NEG); NITRITE (URINE) NEG (NEG); WBC (NOT ORDERED) (RFLEX) 2 (0-5)
[2017-06-25 03:23] LABS: BASOPHILS 0.2 %; BASOPHILS ABSOLUTE 0.03 10/3/uL (0.0-0.16); EOSINOPHILS 3.7 %; EOSINOPHILS ABSOLUTE 0.46 10/3/uL (0.0-0.53); ER CBC TAT 0 Hrs 10 Mins; HEMATOCRIT 45.6 % (36.0-48.0); HEMOGLOBIN 15.5 g/dL (12.0-16.0); IMMATURE GRANULOCYTES 0.4 %; IMMATURE GRANULOCYTES ABSOLUTE 0.05 10/3/uL (0.0-0.11); LYMPHOCYTES 18.6 %; LYMPHOCYTES ABSOLUTE 2.32 10/3/uL (0.67-4.30); MEAN CORPUSCULAR VOLUME 91.2 fL (80-100); MEAN PLATELET VOLUME 10.8 fL (9.2-13.0); MONOCYTES 5.2 %; MONOCYTES ABSOLUTE 0.65 10/3/uL (0.21-1.20); NEUTROPHILS 71.9 %; NEUTROPHILS ABSOLUTE 8.95 10/3/uL (2.02-8.40); PLATELET COUNT 233 10/3/uL (150-400); RBC DISTRIBUTION WIDTH 13.7 % (12.0-16.0); WHITE BLOOD CELLS 12.5 10/3/uL (4.5-10.5)
[2017-06-25 03:28] LABS: MANUAL DIFF NO %
[2017-06-25 03:41] LABS: A/G RATIO 0.9 (0.7-1.9); ALBUMIN 3.6 G/DL (3.5-5.0); ALKALINE PHOSPHATASE 145 U/L (45-117); BUN (BLOOD UREA NITROGEN) 9 MG/DL (6-23); CALCIUM, SERUM 9.2 MG/DL (8.5-10.4); CHLORIDE, SERUM 108 MMOL/L (96-112); CO2 (CARBON DIOXIDE) 23 MMOL/L (24-34); CREATININE 0.85 MG/DL (0.55-1.02); GFR AFRICAN AMERICAN 108 ML/MIN (>=60); GFR NON AFRICAN AMERICAN 93 ML/MIN (>=60); GLOBULIN 4.2 G/DL (2.5-4.1); GLUCOSE, SERUM 134 MG/DL (60-99); POTASSIUM, SERUM 4.1 MMOL/L (3.5-5.3); SGOT(AST) 85 U/L (5-40); SGPT(ALT) 109 U/L (5-65); SODIUM, SERUM 139 MMOL/L (135-148); TOTAL BILIRUBIN 0.3 MG/DL (0-1.2); TOTAL PROTEIN 7.8 G/DL (6.0-8.5)
== END 2017-06-25 07:35 | disposition home or self-care (01) ==
LOC: ER 01:59
PROVIDERS: Emergency Medicine
DX: R10.9 Unspecified abdominal pain (principal); M54.9 Dorsalgia, unspecified; R11.2 Nausea with vomiting, unspecified; Z76.5 Malingerer [conscious simulation]; J45.909 Unspecified asthma, uncomplicated; Z88.2 Allergy status to sulfonamides; Z88.5 Allergy status to narcotic agent; Z88.1 Allergy status to other antibiotic agents; Z88.8 Allergy status to other drugs, medicaments and biological substances; Z79.899 Other long term (current) drug therapy
CPT/HCPCS: 74176; 80053; 81001; 83690; 84703; 85025; 87086; 96372; 99285; J1170; J2550